=== PATIENT | male | born 1965 | race African-American/Black ===

== ENCOUNTER → 2020-11-24 | Outpatient (CLI) | payer OTHER ==
[~2020-11-24] MED LIST: IOHEXOL 300 MG/ML 100ML BOTTLE IJ ONE
[2020-11-24 08:52] LABS: Albumin 2.6 g/dL (3.4-5.0); BUN/Creatinine Ratio 17.8; Calcium 8.9 mg/dL (8.5-10.1); Potassium 4.5 mmol/L (3.5-5.1)
[2020-11-24 08:55] LABS: Bilirubin, Total 0.2 mg/dL (0.2-1.0); Total Protein 9.2 g/dL (6.4-8.2)
== END | disposition home or self-care (01) ==
LOC: CT 08:09
PROVIDERS: ATTEND Internal Medicine
DX: K44.9 Diaphragmatic hernia without obstruction or gangrene (principal); K40.90 Unilateral inguinal hernia, without obstruction or gangrene, not specified as recurrent; M47.819 Spondylosis without myelopathy or radiculopathy, site unspecified; M16.11 Unilateral primary osteoarthritis, right hip; I70.0 Atherosclerosis of aorta; J43.2 Centrilobular emphysema; J98.11 Atelectasis
CPT/HCPCS: 36415; 74177; 80053; Q9967